=== PATIENT | male | born 1965 | race Caucasian/White ===

== ENCOUNTER 2022-04-24 03:54 | Inpatient (IN) | payer MEDICAID, OTHER ==
[~2022-04-24] VITALS: Ht 170.2 cm; Wt 88.5 kg
[2022-04-24] MEDS ORDERED: MORPHINE SULFATE 4 MG/ML CPJ (NOT FOR IM USE) IV STA ×2 (05:32→06:42)
[2022-04-24] MEDS ORDERED: ONDANSETRON HCL 4MG/2ML INJ IV STA ×2 (05:32→06:42)
[2022-04-24] MEDS ORDERED: SODIUM CHLORIDE 0.9% 1,000 ML IV ONE (05:45)
[2022-04-24 05:46] LABS: HEMOGLOBIN. 14.8 g/dL (14.0-18.0); MEAN CORPUSCULAR HEMOGLOBIN 27.5 pg (28.0-32.0); MEAN CORPUSCULAR VOLUME 83.4 fL (80.0-94.0); MEAN PLATELET VOLUME 9.3 fl (7.4-10.4); PLATELET 275 x1000/uL (130-400); RED CELL DISTRIBUTION WIDTH 15.9 % (11.6-14.6)
[2022-04-24 05:53] LABS: CHLORIDE 100 mEq/L (98-107)
[2022-04-24 06:02] LABS: ETHANOL BLOOD < 10 mg/dL
[2022-04-24 06:06] LABS: INR 1.1; PROTHROMBIN TIME 11.9 sec (9.6-11.0)
[2022-04-24 08:40] LABS: PLATELET ESTIMATE NORMAL
[2022-04-24] MEDS ORDERED: MEPERIDINE HCL/PF 25MG/ML CPJ IV PRN (09:15)
[2022-04-24] MEDS ORDERED: HYDROMORPHONE HCL/PF 2MG/ML CPJ IV PRN (09:15)
[2022-04-24] MEDS ORDERED: ONDANSETRON HCL 4MG/2ML INJ IV PRN ×3 (09:15→11:15)
[2022-04-24] MEDS ORDERED: LABETALOL 5MG/ML SYR 20 MG/4 ML SYRINGE IV PRN ×2 (09:15→15:45)
[2022-04-24] MEDS ORDERED: SUCCINYLCHOLINE CHLORIDE 200MG/10ML IV ONE (09:25)
[2022-04-24] MEDS ORDERED: DEXAMETHASONE 4MG/ML 1ML VIAL ONE (09:25)
[2022-04-24] MEDS ORDERED: ONDANSETRON HCL 4MG/2ML INJ ONE (09:25)
[2022-04-24] MEDS ORDERED: ROCURONIUM BROMIDE 10MG/ML VIAL 5ML IV ONE (09:25)
[2022-04-24] MEDS ORDERED: LIDOCAINE HCL 1% 10 MG/ML 10ML VIAL ONE (09:25)
[2022-04-24] MEDS ORDERED: PROPOFOL 200MG/20ML VIAL IV ONE (09:26)
[2022-04-24] MEDS ORDERED: GLYCOPYRROLATE 0.2 MG/ML 2ML VIAL ONE ×2 (09:26)
[2022-04-24] MEDS ORDERED: NEOSTIGMINE METHYLSULFATE 1MG/ML 10 ML VIAL ONE (09:26)
[2022-04-24] MEDS ORDERED: MIDAZOLAM HCL 2 MG/2 ML VIAL ONE (09:27)
[2022-04-24] MEDS ORDERED: FENTANYL CITRATE/PF 50MCG/ML 2ML VIAL ONE (09:27)
[2022-04-24] MEDS ORDERED: MORPHINE SULFATE 4 MG/ML CPJ (NOT FOR IM USE) IV PRN (10:00)
[2022-04-24] MEDS ORDERED: DEXT 5%/0.45% NACL KCL 20MEQ/L 1,000 ML IV SCH (10:00)
[2022-04-24] MEDS ORDERED: NALOXONE HCL 0.4MG/ML VIAL IV PRN (10:00)
[2022-04-24] MEDS: CEFAZOLIN 1000MG PREMIX 50 ML IV SCH ×2 (11:00→19:55)
[2022-04-24] MEDS ORDERED: TRAMADOL 50MG TABLET PO PRN (11:15)
[2022-04-24] MEDS ORDERED: ACETAMINOPHEN 650MG SUPP PR PRN (11:15)
[2022-04-24] MEDS ORDERED: LABETALOL HCL 5MG/ML VIAL 20ML IV ONE (11:16)
[2022-04-24] MEDS ORDERED: EPHEDRINE SULFATE 50MG/ML VIAL ONE (11:16)
[2022-04-24] MEDS: DEXT 5%/0.45% NACL 1000ML 1,000 ML IV SCH (12:00)
[2022-04-24] MEDS: PANTOPRAZOLE SODIUM 40 MG/VIAL IV SCH (13:51)
[2022-04-24 15:40] LABS: BG BASE EXCESS -4.9 mmol/L (-2.0-2.0); BG CARBOXYHEMOGLOBIN 1.5 % (0.5-1.5); BG DEOXYHEMOGLOBIN 1.1 % (0.0-5.0); BG FRACTION INSPIRED OXYGEN 50; BG HCO3 ACT 21.6 mmol/L (22.0-26.0); BG METHEMOGLOBIN 0.4 % (0.0-1.5); BG PCO2 45.3 mmHg (35.0-45.0); BG PH 7.296 (7.350-7.450); BG PO2 150.9 mmHg (75.0-100.0); BG SAMPLE SITE RIGHT RADIAL; BG TOTAL HEMOGLOBIN 14.1 g/dL (12.0-18.0); BG VENT MODE VENT - SIMV
[2022-04-24] MEDS: HYDROMORPHONE HCL/PF 2MG/ML CPJ IV PRN ×3 (15:47→21:12)
[2022-04-24] MEDS ORDERED: DEXTROSE 50% WATER 50ML SYRINGE IV PRN (19:45)
[2022-04-24] MEDS ORDERED: IPRATROPIUM BROMIDE (0.02%) 0.5MG/2.5ML NEB HHN PRN (20:15)
[2022-04-24] MEDS: BLOOD SUGAR DIAGNOSTIC STRIP TEST SCH ×2 (20:25→23:44)
[2022-04-24] MEDS: INSULIN LISPRO 100 UNITS/ML SUBCUT SCH ×2 (20:49→23:45)
[2022-04-24] MEDS ORDERED: FAMOTIDINE 20MG/2ML VIAL IV SCH (21:00)
[2022-04-24 23:06] LABS: BG BASE EXCESS -5.9 mmol/L (-2.0-2.0); BG CARBOXYHEMOGLOBIN 1.1 % (0.5-1.5); BG DEOXYHEMOGLOBIN 4.6 % (0.0-5.0); BG FRACTION INSPIRED OXYGEN 35; BG HCO3 ACT 19.5 mmol/L (22.0-26.0); BG METHEMOGLOBIN 0.6 % (0.0-1.5); BG OXYGEN SATURATION 95.3 % (92.0-98.5); BG OXYHEMOGLOBIN 93.7 % (94.0-97.0); BG PCO2 38.3 mmHg (35.0-45.0); BG PH 7.325 (7.350-7.450); BG PO2 76.6 mmHg (75.0-100.0); BG SAMPLE SITE RIGHT RADIAL; BG TOTAL HEMOGLOBIN 15.5 g/dL (12.0-18.0); BG VENT MODE VENT - SIMV
[2022-04-24] MEDS ORDERED: SODIUM CHLORIDE 0.9% 500 ML IV ONE (23:30)
[2022-04-24] MEDS ORDERED: PHENYLEPHRINE 50 MG in DEXT 5% WATER 245 ML IV PRN (23:30)
[2022-04-25] VITALS (76 sets, daily range): BP systolic 85–170; BP diastolic 33–106
[2022-04-25] MEDS: PROPOFOL 10MG/ML 100ML 100 ML IV PRN ×2 (00:27→08:34)
[2022-04-25] MEDS ORDERED: PHENYLEPHRINE 50 MG in DEXT 5% WATER 245 ML IV PRN (01:15)
[2022-04-25] MEDS ORDERED: DEXTROSE 50% WATER 50ML SYRINGE IV PRN (01:15)
[2022-04-25] MEDS: DEXT 5%/0.45% NACL 1000ML 1,000 ML IV SCH (03:01)
[2022-04-25] MEDS: CEFAZOLIN 1000MG PREMIX 50 ML IV SCH (03:01)
[2022-04-25] MEDS: HYDROMORPHONE HCL/PF 2MG/ML CPJ IV PRN (03:03)
[2022-04-25] MEDS: BLOOD SUGAR DIAGNOSTIC STRIP TEST SCH ×3 (05:33→18:00)
[2022-04-25] MEDS: INSULIN LISPRO 100 UNITS/ML SUBCUT SCH ×3 (05:33→18:00)
[2022-04-25 05:48] LABS: HEMOGLOBIN. 13.5 g/dL (14.0-18.0); MEAN CORPUSCULAR VOLUME 85.6 fL (80.0-94.0); MEAN PLATELET VOLUME 9.7 fl (7.4-10.4); PLATELET 222 x1000/uL (130-400); RED BLOOD CELL COUNT 5.02 mill/uL (4.7-6.1); RED CELL DISTRIBUTION WIDTH 16.1 % (11.6-14.6)
[2022-04-25 07:27] LABS: CHLORIDE 106 mEq/L (98-107)
[2022-04-25 07:39] LABS: HDL CHOLESTEROL 49 mg/dL (40-59); LDL CHOLESTEROL 36 mg/dL (5-100)
[2022-04-25] MEDS: PANTOPRAZOLE SODIUM 40 MG/VIAL IV SCH (08:35)
[2022-04-25] MEDS: MORPHINE SULFATE 2 MG/ML CPJ (NOT FOR IM USE) IV PRN ×2 (08:39→14:38)
[2022-04-25 09:08] LABS: BG BASE EXCESS -0.8 mmol/L (-2.0-2.0); BG CARBOXYHEMOGLOBIN 1.5 % (0.5-1.5); BG DEOXYHEMOGLOBIN 4.5 % (0.0-5.0); BG FRACTION INSPIRED OXYGEN 40; BG HCO3 ACT 23.2 mmol/L (22.0-26.0); BG METHEMOGLOBIN 0.4 % (0.0-1.5); BG OXYGEN SATURATION 95.4 % (92.0-98.5); BG OXYHEMOGLOBIN 93.6 % (94.0-97.0); BG PCO2 36.1 mmHg (35.0-45.0); BG PH 7.425 (7.350-7.450); BG PO2 74.4 mmHg (75.0-100.0); BG SAMPLE SITE RIGHT RADIAL; BG TOTAL HEMOGLOBIN 14.2 g/dL (12.0-18.0); BG VENT MODE VENT - AC
[2022-04-25] MEDS ORDERED: CEFAZOLIN 1000MG PREMIX 50 ML IV SCH (10:00)
[2022-04-25 11:18] LABS: BG CARBOXYHEMOGLOBIN 1.3 % (0.5-1.5); BG DEOXYHEMOGLOBIN 5.7 % (0.0-5.0); BG FRACTION INSPIRED OXYGEN 35; BG HCO3 ACT 24.4 mmol/L (22.0-26.0); BG METHEMOGLOBIN 0.4 % (0.0-1.5); BG OXYGEN SATURATION 94.2 % (92.0-98.5); BG OXYHEMOGLOBIN 92.6 % (94.0-97.0); BG PCO2 39.1 mmHg (35.0-45.0); BG PH 7.413 (7.350-7.450); BG PO2 66.4 mmHg (75.0-100.0); BG SAMPLE SITE RIGHT RADIAL; BG TOTAL HEMOGLOBIN 14.3 g/dL (12.0-18.0); BG VENT MODE VENT - CPAP
[2022-04-25 13:40] LABS: PLATELET ESTIMATE NORMAL
[2022-04-25] MEDS: SODIUM CHLORIDE 0.9% 1,000 ML IV SCH (14:39)
[2022-04-25] MEDS: PIPERACILLIN/TAZOBACTAM 3.375 G in DEXTROSE 5% WATER 50 ML IV SCH ×2 (14:39→20:59)
[2022-04-25] MEDS: METOPROLOL TARTRATE 5MG/5ML VIAL IV PRN ×2 (18:10→21:02)
[2022-04-26] VITALS (32 sets, daily range): BP systolic 116–164; BP diastolic 51–98
[2022-04-26] MEDS: SODIUM CHLORIDE 0.9% 1,000 ML IV SCH ×3 (01:05→18:01)
[2022-04-26] MEDS: INSULIN LISPRO 100 UNITS/ML SUBCUT SCH ×4 (05:17→17:58)
[2022-04-26] MEDS: BLOOD SUGAR DIAGNOSTIC STRIP TEST SCH ×4 (05:17→17:58)
[2022-04-26] MEDS: PIPERACILLIN/TAZOBACTAM 3.375 G in DEXTROSE 5% WATER 50 ML IV SCH ×3 (05:17→21:49)
[2022-04-26] MEDS: METOPROLOL TARTRATE 5MG/5ML VIAL IV PRN ×2 (05:21→11:19)
[2022-04-26 06:04] LABS: CHLORIDE 108 mEq/L (98-107)
[2022-04-26] MEDS: PANTOPRAZOLE SODIUM 40 MG/VIAL IV SCH (07:59)
[2022-04-26 09:58] LABS: CLARITY URINE CLEAR (CLEAR); COLOR URINE YELLOW (YELLOW); KETONES URINE NEGATIVE (NEGATIVE); LEUKOCYTE ESTERASE URINE TRACE (NEGATIVE); NITRITE URINE NEGATIVE (NEGATIVE); OCCULT BLOOD URINE 2+ (NEGATIVE); PH URINE 5.5 (4.5-8.0); PROTEIN URINE 1+ (NEGATIVE); SPECIFIC GRAVITY URINE 1.022 (1.005-1.030); UROBILINOGEN URINE 0.2 E.U./dL (0.2-1.0)
[2022-04-26] MEDS ORDERED: MAGNESIUM 2 G PREMIX 50 ML IV SCH (13:00)
[2022-04-26] MEDS: MORPHINE SULFATE 2 MG/ML CPJ (NOT FOR IM USE) IV PRN (15:03)
[2022-04-27] VITALS: BP 136/68
[2022-04-27] MEDS: BLOOD SUGAR DIAGNOSTIC STRIP TEST SCH ×4 (00:13→23:55)
[2022-04-27 04:00] VITALS: BP 170/103
[2022-04-27] MEDS: MORPHINE SULFATE 2 MG/ML CPJ (NOT FOR IM USE) IV PRN ×2 (04:27→22:00)
[2022-04-27] MEDS: METOPROLOL TARTRATE 5MG/5ML VIAL IV PRN ×2 (04:38→15:52)
[2022-04-27] MEDS: INSULIN LISPRO 100 UNITS/ML SUBCUT SCH ×4 (06:00→23:55)
[2022-04-27] MEDS: PIPERACILLIN/TAZOBACTAM 3.375 G in DEXTROSE 5% WATER 50 ML IV SCH ×3 (06:01→21:28)
[2022-04-27 06:35] LABS: HEMATOCRIT. 32.3 % (42.0-52.0); HEMOGLOBIN. 10.5 g/dL (14.0-18.0); MEAN CORPUSCULAR HEMOGLOBIN 26.9 pg (28.0-32.0); MEAN CORPUSCULAR VOLUME 83.1 fL (80.0-94.0); MEAN PLATELET VOLUME 8.9 fl (7.4-10.4); PLATELET 204 x1000/uL (130-400); RED BLOOD CELL COUNT 3.88 mill/uL (4.7-6.1); RED CELL DISTRIBUTION WIDTH 16.3 % (11.6-14.6)
[2022-04-27 06:53] LABS: CHLORIDE 110 mEq/L (98-107)
[2022-04-27 08:00] VITALS: BP 161/112
[2022-04-27] MEDS: HYDRALAZINE 20MG/ML VIAL IV PRN (10:01)
[2022-04-27] MEDS: PANTOPRAZOLE SODIUM 40 MG/VIAL IV SCH (10:01)
[2022-04-27] MEDS: SODIUM CHLORIDE 0.9% 1,000 ML IV SCH ×2 (10:17→19:49)
[2022-04-27 12:00] VITALS: BP 165/96
[2022-04-27 13:49] LABS: PLATELET ESTIMATE NORMAL
[2022-04-27 16:00] VITALS: BP 173/105
[2022-04-27 20:00] VITALS: BP 163/83
[2022-04-28 00:15] VITALS: BP 147/75
[2022-04-28 04:00] VITALS: BP 167/78
[2022-04-28] MEDS: MORPHINE SULFATE 2 MG/ML CPJ (NOT FOR IM USE) IV PRN ×5 (04:41→23:17)
[2022-04-28] MEDS: BLOOD SUGAR DIAGNOSTIC STRIP TEST SCH ×4 (05:27→23:16)
[2022-04-28] MEDS: PIPERACILLIN/TAZOBACTAM 3.375 G in DEXTROSE 5% WATER 50 ML IV SCH ×3 (05:27→22:08)
[2022-04-28] MEDS: INSULIN LISPRO 100 UNITS/ML SUBCUT SCH ×4 (05:27→23:49)
[2022-04-28] MEDS: SODIUM CHLORIDE 0.9% 1,000 ML IV SCH ×3 (05:29→17:22)
[2022-04-28 08:00] VITALS: BP 164/95
[2022-04-28] MEDS: PANTOPRAZOLE SODIUM 40 MG/VIAL IV SCH (08:25)
[2022-04-28 12:00] VITALS: BP 174/96
[2022-04-28] MEDS: HYDRALAZINE 20MG/ML VIAL IV PRN (14:36)
[2022-04-28 16:00] VITALS: BP 155/86
[2022-04-28] MEDS: AMLODIPINE 5MG TABLET JT SCH (18:29)
[2022-04-28 20:00] VITALS: BP 113/83
[2022-04-29] VITALS: BP 148/79
[2022-04-29] MEDS: SODIUM CHLORIDE 0.9% 1,000 ML IV SCH ×3 (01:22→20:21)
[2022-04-29] MEDS: MORPHINE SULFATE 2 MG/ML CPJ (NOT FOR IM USE) IV PRN ×2 (03:52→13:10)
[2022-04-29 04:00] VITALS: BP 160/93
[2022-04-29] MEDS: INSULIN LISPRO 100 UNITS/ML SUBCUT SCH ×4 (06:00→23:56)
[2022-04-29] MEDS: HYDRALAZINE 20MG/ML VIAL IV PRN (06:37)
[2022-04-29] MEDS: BLOOD SUGAR DIAGNOSTIC STRIP TEST SCH ×4 (06:37→23:56)
[2022-04-29] MEDS: PIPERACILLIN/TAZOBACTAM 3.375 G in DEXTROSE 5% WATER 50 ML IV SCH ×3 (06:57→20:22)
[2022-04-29 08:00] VITALS: BP 167/89
[2022-04-29] MEDS: AMLODIPINE 5MG TABLET JT SCH (08:49)
[2022-04-29] MEDS: PANTOPRAZOLE SODIUM 40 MG/VIAL IV SCH (08:49)
[2022-04-29 12:00] VITALS: BP 157/95
[2022-04-29] MEDS ORDERED: NALOXONE HCL 0.4MG/ML VIAL IV PRN (12:45)
[2022-04-29 16:35] VITALS: BP 151/88
[2022-04-29 20:00] VITALS: BP 136/65
[2022-04-30] VITALS (7 sets, daily range): BP systolic 129–154; BP diastolic 57–97
[2022-04-30 05:46] LABS: CHLORIDE 107 mEq/L (98-107)
[2022-04-30] MEDS: PIPERACILLIN/TAZOBACTAM 3.375 G in DEXTROSE 5% WATER 50 ML IV SCH (05:54)
[2022-04-30] MEDS: BLOOD SUGAR DIAGNOSTIC STRIP TEST SCH ×4 (05:54→23:46)
[2022-04-30] MEDS: INSULIN LISPRO 100 UNITS/ML SUBCUT SCH ×4 (05:58→23:46)
[2022-04-30 06:08] LABS: HEMATOCRIT 32.3 % (42.0-52.0); HEMOGLOBIN 10.5 g/dL (14.0-18.0); MEAN CORPUSCULAR HEMOGLOBIN 26.6 pg (28.0-32.0); MEAN CORPUSCULAR VOLUME 81.5 fL (80.0-94.0); PLATELET 262 x1000/uL (130-400); RED BLOOD CELL COUNT 3.97 mill/uL (4.7-6.1); RED CELL DISTRIBUTION WIDTH 17.1 % (11.6-14.6)
[2022-04-30] MEDS: AMLODIPINE 5MG TABLET JT SCH (08:31)
[2022-04-30] MEDS: PANTOPRAZOLE SODIUM 40 MG/VIAL IV SCH (08:31)
[2022-04-30] MEDS: SODIUM CHLORIDE 0.9% 1,000 ML IV SCH ×2 (08:32→21:54)
[2022-04-30] MEDS ORDERED: AMLO5TAB4 MT (13:55)
[2022-04-30] MEDS ORDERED: POTASSIUM CHLORIDE 20MEQ/PACKET PO NR (14:00)
[2022-04-30] MEDS: MORPHINE SULFATE 2 MG/ML CPJ (NOT FOR IM USE) IV PRN (18:04)
[2022-05-01] VITALS: BP 142/70
[2022-05-01 04:00] VITALS: BP 149/80
[2022-05-01] MEDS: INSULIN LISPRO 100 UNITS/ML SUBCUT SCH ×3 (05:27→18:00)
[2022-05-01] MEDS: BLOOD SUGAR DIAGNOSTIC STRIP TEST SCH ×4 (05:27→23:08)
[2022-05-01 07:29] LABS: BASOPHILS % 0.4 % (0.0-2.0); EOSINOPHILS % 1.6 % (0.0-5.0); HEMATOCRIT. 31.3 % (42.0-52.0); HEMOGLOBIN. 10.3 g/dL (14.0-18.0); LYMPHOCYTES % 7.7 % (20.0-50.0); MEAN CORPUSCULAR HEMOGLOBIN 26.7 pg (28.0-32.0); MEAN CORPUSCULAR VOLUME 81.5 fL (80.0-94.0); MEAN PLATELET VOLUME 8.1 fl (7.4-10.4); MONOCYTES % 9.7 % (2.0-8.0); NEUTROPHILS % 80.6 % (40.0-76.0); PLATELET 294 x1000/uL (130-400); RED BLOOD CELL COUNT 3.84 mill/uL (4.7-6.1); RED CELL DISTRIBUTION WIDTH 17.2 % (11.6-14.6)
[2022-05-01 07:30] LABS: CHLORIDE 108 mEq/L (98-107)
[2022-05-01 08:00] VITALS: BP 144/88
[2022-05-01] MEDS: AMLODIPINE 5MG TABLET JT SCH (09:10)
[2022-05-01] MEDS: PANTOPRAZOLE SODIUM 40 MG/VIAL IV SCH (09:20)
[2022-05-01] MEDS: SODIUM CHLORIDE 0.9% 1,000 ML IV SCH (11:22)
[2022-05-01 12:00] VITALS: BP 148/87
[2022-05-01 16:00] VITALS: BP 141/82
[2022-05-01 20:00] VITALS: BP 151/88
[2022-05-02] VITALS: BP 148/90
[2022-05-02 04:00] VITALS: BP 140/86
[2022-05-02] MEDS: INSULIN LISPRO 100 UNITS/ML SUBCUT SCH ×3 (06:00→12:00)
[2022-05-02] MEDS: BLOOD SUGAR DIAGNOSTIC STRIP TEST SCH ×2 (06:00→12:12)
[2022-05-02 07:08] LABS: HEMATOCRIT 32.5 % (42.0-52.0); HEMOGLOBIN 10.6 g/dL (14.0-18.0); MEAN CORPUSCULAR HEMOGLOBIN 26.5 pg (28.0-32.0); MEAN CORPUSCULAR VOLUME 81.2 fL (80.0-94.0); PLATELET 337 x1000/uL (130-400); RED CELL DISTRIBUTION WIDTH 16.8 % (11.6-14.6)
[2022-05-02 07:29] LABS: CHLORIDE 105 mEq/L (98-107)
[2022-05-02] MEDS ORDERED: AMLODIPINE 5MG TABLET PO SCH (09:00)
[2022-05-02] MEDS: PANTOPRAZOLE SODIUM 40 MG/VIAL IV SCH (09:30)
[2022-05-02 12:13] VITALS: BP 145/86
== END 2022-05-02 13:30 | disposition home or self-care (01) | DRG 710 ==
LOC: ER 03:54 → ORIP 07:58 → EDBEDREQTM 08:01 → EDBEDREQSVC 08:01 → EDBEDREQ 08:01 → MICUSO 04-25 00:34 → 7EST 04-26 17:16
PROVIDERS: ADMIT Hospitalist; ATTEND Hospitalist
PROC: 0DQ60ZZ Repair Stomach, Open Approach (ICD-10-PCS; principal; 2022-04-24)
PROC: 0D960ZZ Drainage of Stomach, Open Approach (ICD-10-PCS; 2022-04-24)
PROC: 0DHA0UZ Insertion of Feeding Device into Jejunum, Open Approach (ICD-10-PCS; 2022-04-24)
PROC: 0DH60UZ Insertion of Feeding Device into Stomach, Open Approach (ICD-10-PCS; 2022-04-24)
PROC: 5A1935Z Respiratory Ventilation, Less than 24 Consecutive Hours (ICD-10-PCS; 2022-04-24)
PROC: 0BH17EZ Insertion of Endotracheal Airway into Trachea, Via Natural or Artificial Opening (ICD-10-PCS; 2022-04-25)
DX: A41.9 Sepsis, unspecified organism (principal); K25.5 Chronic or unspecified gastric ulcer with perforation; E43 Unspecified severe protein-calorie malnutrition; K56.2 Volvulus; K65.9 Peritonitis, unspecified; N17.9 Acute kidney failure, unspecified; I95.89 Other hypotension; K44.0 Diaphragmatic hernia with obstruction, without gangrene; Z20.822 Contact with and (suspected) exposure to COVID-19; E11.65 Type 2 diabetes mellitus with hyperglycemia; I16.0 Hypertensive urgency; K57.90 Diverticulosis of intestine, part unspecified, without perforation or abscess without bleeding; I10 Essential (primary) hypertension; D64.9 Anemia, unspecified; E87.6 Hypokalemia; K31.89 Other diseases of stomach and duodenum; Z79.899 Other long term (current) drug therapy; Z68.30 Body mass index [BMI] 30.0-30.9, adult
CPT/HCPCS: 36415; 36600; 71045; 74176; 80048; 80053; 80061; 80320; 81003; 82375; 82805; 82962; 83036; 83735; 85025; 85027; 87426; 93005; 94002; 94003; 97116; 97162; 97166; 97530; 97535; 99285; C1758; C9113; C9803; J0330; J0360; J0690; J1100; J1170; J1815; J2250; J2270; J2370; J2405; J2543; J2704; J2710; J3010; J3475; J3490; J7030; J7060; G0480